=== PATIENT | female | born 1930 | race Caucasian/White ===

== ENCOUNTER 2016-04-07 04:07 | Inpatient (IN) | payer MEDICAID, OTHER ==
[2016-04-07] VITALS (8 sets, daily range): BP systolic 92–174; BP diastolic 53–75; PULSE 80–95; RESP 18–19; TEMP 98; Ht 149.9 cm; Wt 64.3 kg
[~2016-04-07] VITALS: Ht 149.9 cm; Wt 64.3 kg
[2016-04-07] MEDS ORDERED: DICLOFENAC SODIUM 37.5 MG/ML VIAL IV STA (06:08)
[2016-04-07] MEDS ORDERED: SOD CHLORIDE 0.9% 1,000 ML IV ONE (06:30)
--- NOTE | 2016-04-07 06:37 | RADRPT ---
PROCEDURE: CHEST - 1 VIEW CLINICAL INDICATION: 85-year-old female with chest/abdominal pain. TECHNIQUE: A single frontal AP view of the chest was performed portably. The images were reviewed on a PACS workstation. COMPARISON: None. FINDINGS: The cardiomediastinal silhouette is mildly enlarged. The thoracic aorta is calcified. There is mil d pulmonary vascular congestion. There is no evidence for an infiltrate. There is no evidence for pneumothorax. The osseous structures are intact. IMPRESSION: 1. Cardiomegaly. 2. Calcified thoracic aorta. 3. Mild pulmonary vascular congestion. .Ab Perez MD, Date Time Electronically viewed and signed by .Ab Perez MD, MD on 04/07/2016 06:36 .M/
[2016-04-07 06:39] LABS: ALBUMIN 4.2 g/dl (3.3-4.9)
[2016-04-07 06:40] LABS: POTASSIUM 4.6 mmol/L (3.5-5.1)
[2016-04-07 06:42] LABS: BILIRUBIN,INDIRECT 0.3 mg/dl (0-1.1); BILIRUBIN,TOTAL 0.3 mg/dl (0.2-1.3); CREATININE 0.69 mg/dl (0.44-1.00)
[2016-04-07 06:43] LABS: ALBUMIN/GLOBULIN RATIO 1.1; CALCIUM 9.7 mg/dl (8.4-10.2)
[2016-04-07 06:55] LABS: TROPONIN-I 0.114 ng/ml (0.00-0.12)
[2016-04-07] MEDS ORDERED: CEFTRIAXONE 1 GM/50 ML (PMX) 50 ML IVPB ONE (07:00)
[2016-04-07 07:04] LABS: HEMATOCRIT 39.2 % (37.0-47.0); HEMOGLOBIN 13.2 g/dl (12.0-16.0); MEAN CORPUSCULAR HGB CONC 33.8 g/dl (32.0-37.0); MEAN CORPUSCULAR VOLUME 82.9 fl (82.0-101.0); MEAN PLATELET VOLUME 11.3 fl (7.4-10.4); PLATELET COUNT 106 10^3/UL (140-440); RED BLOOD COUNT 4.73 10^6/ul (4.20-5.40); RED CELL DISTRIBUTION WIDTH 14.4 % (11.5-14.5)
[2016-04-07 07:06] LABS: CONDITION 1; LH ANALYZER COMMENTS 1; SUSPECT 1; UNCORRECTED WBC 12.6 10^3/ul (4.8-10.8)
[2016-04-07 07:13] LABS: ADD UMIC YES; URINE BILIRUBIN (Dip) NEGATIVE (NEGATIVE); URINE BLOOD (Dip) 1+ (NEGATIVE); URINE COLOR LT. YELLOW (YELLOW); URINE GLUCOSE (Dip) NEGATIVE (NEGATIVE); URINE KETONES (Dip) NEGATIVE (NEGATIVE); URINE LEUKOCYTE ESTERASE (Dip) TRACE (NEGATIVE); URINE NITRITE (Dip) POSITIVE (NEGATIVE); URINE TOTAL PROTEIN (Dip) 2+ (NEGATIVE); URINE UROBILINOGEN (Dip) 0.2 E.U./dL (0.1-1.0)
[2016-04-07 07:40] LABS: EOSINOPHILS # 0.2 10^3/ul (0.0-0.5); LYMPHOCYTES # 0.9 10^3/ul (0.8-2.9); MONOCYTE # 0.6 10^3/ul (0.3-0.9); NEUTROPHIL # 9.4 10^3/ul (1.6-7.5)
[2016-04-07 07:41] LABS: HYPOCHROMASIA 1+; PLATELETS CLUMPS RARE
[2016-04-07 07:46] LABS: BACTERIA,URINE MODERATE; URINE RBCS 0-2 /HPF (0)
[2016-04-07] MEDS ORDERED: ASPIRIN 325 MG TAB PO ONE (08:00)
[2016-04-07] MEDS ORDERED: FUROSEMIDE 40 MG INJ IV ONE (09:30)
[2016-04-07] MEDS ORDERED: ONDANSETRON 4 MG INJ IV PRN ×2 (10:30→11:30)
[2016-04-07] MEDS ORDERED: ACETAMINOPHEN 325 MG TAB PO PRN ×2 (10:30→11:30)
[2016-04-07] MEDS ORDERED: BISACODYL (EC) 5 MG TAB PO PRN (11:30)
[2016-04-07] MEDS ORDERED: NACL 0.9% 3 ML SYG IV SCH (11:30)
[2016-04-07] MEDS ORDERED: morphine 2 MG INJ IV PRN (11:30)
[2016-04-07] MEDS ORDERED: HYDROCODONE/APAP (5/325) TAB PO PRN (11:30)
[2016-04-07] MEDS ORDERED: hydrALAzine 20 MG INJ IV PRN ×2 (11:30→15:30)
[2016-04-07] MEDS ORDERED: NITROGLYCERIN (SL) 0.4 MG TAB SL PRN (11:30)
[2016-04-07] MEDS ORDERED: ZOLPIDEM 5 MG TAB PO PRN (11:30)
[2016-04-07] MEDS ORDERED: MAGNESIUM HYDROXIDE 30ML CUP PO PRN (11:30)
[2016-04-07] MEDS ORDERED: LORAZEPAM 2 MG INJ IV PRN (11:30)
[2016-04-07] MEDS ORDERED: METO25TA4 PO (11:56)
[2016-04-07] MEDS ORDERED: BENA5TAB2 PO (11:57)
[2016-04-07] MEDS ORDERED: ATOR80TA75 PO (11:58)
[2016-04-07] MEDS ORDERED: ASPI81TA3 PO (11:58)
[2016-04-07] MEDS ORDERED: ACET-141 PO (11:58)
--- NOTE | 2016-04-07 12:22 | ERA ---
ER Documentation Chief Complaint Date/Time DATE: 04/07/16 TIME: 12:04 Chief Complaint sob tonight HPI This 85-year-old female presents emergency room with shortness of breath is been going for the last few days the getting progressively worse. She also has chest pain that hurts when she pushes on her sternum. Medical history includes only hypertension high cholesterol. She's been otherwise healthy and lives with family but is partially independent. He's had chills but does not think she has had any fevers. She has been somewhat lightheaded. She is also had increased urinary frequency. ROS All systems reviewed and are negative except as per history of present illness. Medications Home Meds Reported Medications Acetaminophen* (Acetaminophen*) 500 MG Extra Strength Tablet, 500 MG PO Q6H Y for PAIN AND OR ELEVATED TEMP, TAB 04/07/16 Atorvastatin* (Atorvastatin*) 80 Mg Tablet, 80 MG PO QHS, #30 TAB 04/07/16 Aspirin* (Aspirin* Chew) 81 Mg Tab.chew, 81 MG PO DAILY, TAB.CHEW 04/07/16 Benazepril Hcl* (Benazepril Hcl*) 5 Mg Tablet, 5 MG PO BID, #60 TAB 04/07/16 Metoprolol Tartrate* (Lopressor*) 25 Mg Tablet, 25 MG PO DAILY, #60 TAB 04/07/16 Allergies Allergies: Coded Allergies: No Known Drug Allergies (Verified Allergy, Unknown, 04/07/16) PMhx/Soc History of Surgery: Yes (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) Anesthesia Reaction: No Hx Neurological Disorder: No Hx Respiratory Disorders: No Hx Cardiac Disorders: Yes (HTN, HIGH CHOLESTEROL) Hx Psychiatric Problems: No Hx Miscellaneous Medical Probl: No Hx Alcohol Use: No Hx Substance Use: No Hx Tobacco Use: No Smoking Status: Never smoker Physical Exam Vitals Vital Signs Date Time Temp Pulse Resp B/P Pulse Ox O2 Delivery O2 Flow Rate FiO2 04/07/16 10:30 98.0 105 28 171/74 97 04/07/16 08:30 98.0 104 28 174/70 97 04/07/16 06:30 98.0 105 28 171/67 97 04/07/16 05:05 98.0 109 28 179/64 97 04/07/16 04:10 98.0 115 28 194/91 96 Physical Exam Const: [] No acute distress Head: Atraumatic Eyes: Normal Conjunctiva and EOMI, TRAVIS ENT: Normal External Ears, Nose and Mouth. Neck: Full range of motion..~ No meningismus. Resp: Increased bibasilar breath sounds mild Rales in right base. Cardio: Regular tachycardia, no murmurs Abd: Soft, non tender, non distended. Normal bowel sounds Skin: No petechiae or rashes Back: No midline or flank tenderness Ext: No cyanosis, or edema Neur: Awake and alert and oriented 3., No focal deficits Result Diagram: 04/07/16 0600 04/07/16 0600 Results 24 hrs Laboratory Tests Test 04/07/16 06:00 04/07/16 06:58 04/07/16 07:10 04/07/16 10:25 Alanine Aminotransferase (ALT/SGPT) 38IU/L Albumin 4.2g/dl Albumin/Globulin Ratio 1.10 Alkaline Phosphatase 95IU/L Anion Gap 16 Aspartate Amino Transf (AST/SGOT) 36IU/L B-Type Natriuretic Peptide 2800PG/ML Basophils # 10^3/ul Basophils % % Blood Morphology Comment Blood Urea Nitrogen 17mg/dl Calcium Level 9.7mg/dl Carbon Dioxide Level 30mmol/L Chloride Level 101mmol/L Clumped Platelets RARE Creatinine 0.69mg/dl Differential Comment MANUAL DIFF Direct Bilirubin 0.00mg/dl Eosinophils # 0.210^3/ul Eosinophils % 2.0% Giant Platelets RARE Globulin 3.80g/dl Glucose Level 111mg/dl Hematocrit 39.2% Hemoglobin 13.2g/dl Hypochromasia 1+ Indirect Bilirubin 0.3mg/dl Large Platelets OCCASIONAL Lipase 190U/L Lymphocytes # 0.910^3/ul Lymphocytes % 8.0% Mean Corpuscular Hemoglobin 28.0pg Mean Corpuscular Hemoglobin Concent 33.8g/dl Mean Corpuscular Volume 82.9fl Mean Platelet Volume 11.3fl Monocytes # 0.610^3/ul Monocytes % 5.0% Neutrophils # 9.410^3/ul Neutrophils % 85.0% Nucleated Red Blood Cells # 10^3/ul Nucleated Red Blood Cells % /100WBC Platelet Count 95163^3/UL Potassium Level 4.6mmol/L Red Blood Count 4.7310^6/ul Red Cell Distribution Width 14.4% Sodium Level 142mmol/L Total Bilirubin 0.3mg/dl Total Protein 8.0g/dl Troponin I 0.114ng/ml White Blood Count 11.010^3/ul Urine Bacteria MODERATE Urine Bilirubin NEGATIVE Urine Clarity SLIGHTLY CLOUDY Urine Color LT. YELLOW Urine Epithelial Cells FEW Urine Glucose NEGATIVE% Urine Hemoglobin 1+ Urine Ketones NEGATIVE Urine Leukocyte Esterase TRACE Urine Microscopic RBC 0-2/HPF Urine Microscopic WBC 5-10/HPF Urine Nitrite POSITIVE Urine Specific [place] 1.015 Urine Total Protein 2+ Urine Urobilinogen 0.2 E.U./dL Urine pH 6.5 Lactic Acid Level 1.6mmol/L 1.8mmol/L Current Medications Medications (Trade) Dose Ordered Sig/Josh Route PRN Reason Start Time Stop Time Status Last Admin Dose Admin Sodium Chloride (NS) 1,000 ml @ 1,000 mls/hr Q1H ONCE IV 04/07/16 06:30 04/07/16 07:29 DC 04/07/16 06:40 Diclofenac Sodium 37.5 mg 37.5 mg ONCE STAT IV 04/07/16 06:08 04/07/16 06:10 DC Ceftriaxone Sodium (Rocephin) 50 ml @ 100 mls/hr ONCE ONCE IVPB 04/07/16 07:00 04/07/16 07:29 DC 04/07/16 07:15 Aspirin (Aspirin) 325 mg ONCE ONCE PO 04/07/16 08:00 04/07/16 08:01 DC 04/07/16 08:00 Furosemide (Lasix) 40 mg ONCE ONCE IV 04/07/16 09:30 04/07/16 09:31 DC 04/07/16 09:30 Ondansetron HCl (Zofran Inj) 4 mg ER BRIDGE PRN IV NAUSEA AND/OR VOMITING 04/07/16 10:30 04/08/16 10:29 Acetaminophen (Tylenol Tab) 650 mg ER BRIDGE PRN PO MILD PAIN/FEVER 04/07/16 10:30 04/08/16 10:29 IV Flush (NS 3 ml) 3 ml PER PROTOCOL IV 04/07/16 11:30 Lorazepam (Ativan) 0.5 mg Q6H PRN IV ANXIETY 04/07/16 11:30 Ondansetron HCl (Zofran Inj) 4 mg Q6H PRN IV NAUSEA AND/OR VOMITING 04/07/16 11:30 Aspirin (Aspirin) 81 mg DAILY PO 04/08/16 09:00 Nitroglycerin (Nitroglycerin (Sl Tab) 0.4 Mg) 1 tab Q5M PRN SL CHEST PAIN 04/07/16 11:30 Acetaminophen (Tylenol Tab) 650 mg Q6H PRN PO PAIN LEVEL 1-3 OR FEVER 04/07/16 11:30 Acetaminophen/ Hydrocodone Bitart ([place] (5/325)) 1 tab Q6H PRN PO PAIN LEVEL 4-6 04/07/16 11:30 Morphine Sulfate (morphine) 2 mg Q4H PRN IV PAIN LEVEL 7-10 04/07/16 11:30 Zolpidem Tartrate (Ambien) 5 mg QHS PRN PO INSOMNIA 04/07/16 11:30 Magnesium Hydroxide (Milk Of Mag) 30 ml DAILY PRN PO CONSTIPATION 04/07/16 11:30 Bisacodyl (Dulcolax) 5 mg DAILY PRN PO CONSTIPATION 04/07/16 11:30 Famotidine (Pepcid) 20 mg DAILY PO 04/07/16 12:00 Enoxaparin Sodium (Lovenox) 40 mg DAILY SC 04/08/16 09:00 04/08/16 09:00 DC Hydralazine HCl 10 mg 10 mg Q6H PRN IV SBP greater than 160 04/07/16 11:30 Ceftriaxone Sodium (Rocephin) 50 ml @ 100 mls/hr Q24H IVPB 04/08/16 06:00 Procedures/MDM Elderly female with new onset congestive heart failure likely causing her shortness of breath as well as concomitant UTI with sepsis. Is no history of congestive heart failure and has elevated BNP as well as evidence of probably vascular congestion with mild pulmonary edema on chest x-ray. Persistent tachycardia in emergency room after for administration of 30 mL/kg she is given Rocephin. Diagnosis sepsis was made approximately one hour after patient's arrival in white blood cell count came back mildly elevated. She has no signs of acute cardiac syndrome at this time. She was given aspirin for the chest pain as well as Lasix 40 mg IV. Stated that she was feeling better in the emergency room. She'll be admitted for further control of her fluid balance after receiving fluids for sepsis and adding new onset congestive heart failure. Spoke with Dr. Taylor omitting the patient to telemetry. EKG interpretation: Sinus tachycardia, normal axis, no ST-T wave changes concerning for acute ischemia. Normal EKG Chest x-ray interpretation: Pulmonary vascular congestion with mild pulmonary edema, I see no infiltrates no pneumothorax, no Fractures monitor and storage bin tender interpretation: Persistent sinus tachycardia with no other arrhythmias Critical care time 33 minutes: This includes management of UTI with sepsis, careful fluid administration with concomitant congestive heart failure, antibiotic selection, chart review, multiple visits the patient's bedside to reassess her fluid status, discussion with family, patient admitting doctor. Is not occluding billable procedures Departure Diagnosis: Primary Impression: Sepsis secondary to UTI Additional Impressions: Chest pain Thrombocytopenia Condition: Serious SHIN SR DO Apr 07, 2016 12:17
--- NOTE | 2016-04-07 13:02 | HP ---
Date/Time of Note Date/Time of Note DATE: 04/07/16 TIME: 12:57 Assessment/Plan VTE Prophylaxis VTE Prophylaxis Intervention: SCD's Assessment/Plan Assessment/Plan 1. Chest pain. To rule out acute coronary syndrome. Serial troponins will be ordered. A 2-D echocardiogram will be obtained. The patient will be maintained on aspirin. A cardiology consult will be obtained. 2. CHF exacerbation. Systolic versus diastolic dysfunction. The patient will be maintained on Lasix. A 2-D echocardiogram will be obtained to evaluate the left ventricular ejection fraction. 3. Acute respiratory distress without failure. Hypoxic. Most probably secondary to #2. The patient will be maintained on supplemental oxygen. The patient will be adequately diuresed. The patient will be started on PRN inhaled bronchodilators for any episodes of dyspnea. 4. Accelerated hypertension. The patient's home antihypertensives will be resumed. The patient will also be started on PRN antihypertensives for any systolic blood pressure readings greater than 160 mmHg. 5. Dyslipidemia. The patient statins will be resumed. A fasting lipid panel will be obtained. Plan: The patient will be admitted to inpatient telemetry floor. The patient will be started on a low-cholesterol diet. The patient will be started on DVT prophylaxis and gastrointestinal prophylaxis. The patient will remain a full code. Activities will be as tolerated. The rest of the patient's management will be based on the clinical course, inputs from consultants, and the results of diagnostic studies. Based on the patient's clinical presentation, he most probably requires at least 1 midnight's stay for further management and evaluation of his clinical presentation. The case and management of this patient was fully discussed with . Approximately 50 minutes was spent on the history and physical of this patient. HPI/ROS Admit Date/Time Admit Date/Time Apr 07, 2016 at 10:09 Hx of Present Illness Reason for admission: Dyspnea and chest pain. Consultants 1. Kevin Randle M.D., cardiology. This is a 85-year-old female with past medical history essential hypertension, CAD, and dyslipidemia who was brought to the emergency room because of complaints of dyspnea that has been progressively getting worse for the past few days along with reported chest pain. The patient verbalized that she has been having worsening shortness of breath. This was not associated with any cough. The patient denied any fevers, chills, nausea, diaphoresis, vomiting , diarrhea, dysuria, or hematuria. The patient described the chest pain as substernal with no associated radiation. As per the patient's daughter, the patient had a coronary angiogram done at [facility] in February 2015. However, the daughter was not sure whether she got any interventions done. As per the daughter, the patient had a "heart attack" at that time. In the emergency room, the patient's initial set of troponins were negative. The patient's 12-lead EKG showed sinus rhythm with premature ventricular complexes. The patient was also noticed to have elevated BNP [2800]. Her urinalysis showed positive nitrate and leukocyte esterase with urine microscopic WBC of 5-10. She was noticed to have a blood pressure of 194/91 mmHg. The patient also had underlying tachycardia. Chest x-ray showed cardiomegaly with mild pulmonary vascular congestion. The patient was given IV Lasix, oral aspirin, and IV ceftriaxone in the emergency room. 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 Alcohol Use: none Smoking Status: Never smoker Drug Use: none Exam/Review of Systems Vital Signs Vitals Vital Signs Date Time Temp Pulse Resp B/P Pulse Ox O2 Delivery O2 Flow Rate FiO2 04/07/16 10:30 98.0 105 28 171/74 97 Exam Exam General: Adequately build 85 year-old female lying in bed in no apparent distress. HEENT: Normocephalic, atraumatic. Eyes: Anicteric sclerae, conjunctivae clear. ENT: Nasal septum midline, oral mucosa moist. Neck supple, no JVD noticed. Respiratory: Bilaterally diminished breath sounds. No use of accessory muscles of respiration. Bibasilar fine rales. Kyphotic posture. Cardiovascular: S1, S2 heard. Regular rate and rhythm. Abdomen: Soft and nondistended. Bowel sounds positive in all 4 quadrants. Mild tenderness in the right upper quadrant and left lower quadrant. Genitourinary: Deferred. Extremities: No cyanosis, no clubbing, no edema. Peripheral pulses palpable. Neurologic: Cranial nerves II through XII grossly intact. The patient is awake, alert, and oriented. Skin: Normal skin turgor. No skin rashes. Labs Result Diagram: 04/07/16 0600 04/07/16 0600 Medications Medications Current Medications Lorazepam (Ativan) 0.5 mg Q6H PRN IV ANXIETY; Start 04/07/16 at 11:30 Ondansetron HCl (Zofran Inj) 4 mg Q6H PRN IV NAUSEA AND/OR VOMITING; Start at 11:30 Aspirin (Aspirin) 81 mg DAILY PO ; Start 04/08/16 at 09:00 Nitroglycerin (Nitroglycerin (Sl Tab) 0.4 Mg) 1 tab Q5M PRN SL CHEST PAIN; Start 04/07/16 at 11:30 Acetaminophen (Tylenol Tab) 650 mg Q6H PRN PO PAIN LEVEL 1-3 OR FEVER; Start at 11:30 Acetaminophen/ Hydrocodone Bitart ([place] (5/325)) 1 tab Q6H PRN PO PAIN LEVEL 4 -6; Start 04/07/16 at 11:30 Morphine Sulfate (morphine) 2 mg Q4H PRN IV PAIN LEVEL 7-10; Start 04/07/16 at 11:30 Zolpidem Tartrate (Ambien) 5 mg QHS PRN PO INSOMNIA; Start 04/07/16 at 11:30 Magnesium Hydroxide (Milk Of Mag) 30 ml DAILY PRN PO CONSTIPATION; Start at 11:30 Bisacodyl (Dulcolax) 5 mg DAILY PRN PO CONSTIPATION; Start 04/07/16 at 11:30 Famotidine (Pepcid) 20 mg DAILY PO ; Start 04/07/16 at 12:00 Hydralazine HCl 10 mg 10 mg Q6H PRN IV SBP greater than 160; Start 04/07/16 at 11:30 Ceftriaxone Sodium (Rocephin) 50 ml @ 100 mls/hr Q24H IVPB ; Start 04/08/16 at 06:00 Procedures Procedures CXR IMPRESSION: 1. Cardiomegaly. 2. Calcified thoracic aorta. 3. Mild pulmonary vascular congestion. 12-lead EKG Sinus rhythm with premature ventricular complexes. KUMAR RENO NP Apr 07, 2016 13:02
--- NOTE | 2016-04-07 15:30 | RADRPT ---
Echocardiogram Report ADDENDUM Patient Name: MARILYN ALMARAZ Gender: Female Date: 1930 Study Date: 07-Apr-2016 Genetic Scientist: [facility] Location: [id number] Ref. Physician: KUMAR RENO Quality: Technically Difficult Study Procedures: Transthoracic echocardiogram with complete 2D, M-Mode, and doppler examination. Indications: Chest Pain. 2D/M Mode Doppler Measurement Value Normal Ranges Measurement Value Normal Ranges LVIDd 2D 4.2 3.5 - 5.6 cm AV Peak Alex 2.2 m/sec LVIDs 2D 3.0 2.1 - 4.1 cm AV Peak PG 20.0 mmHg FS 2D 29.1 % AI Peak PG 65.0 mmHg LVPWd 2D 1.4 0.6 - 1.1 cm AI Peak Alex 4.0 m/sec IVSd 2D 1.6 0.6 - 1.1 cm AI PHT 340.0 msec IVS/LVPW 2D 1.1 LVOT Peak Alex 0.9 m/sec AoR Diam 2D 2.6 2.0 - 3.7 cm LVOT Peak PG 3.0 mmHg LA/Ao 2D 2 0 - 1 MV E Peak Alex 1.3 m/sec EDV 2D 72.0 cm3 MR Peak PG 130.0 mmHg ESV 2D 25.7 cm3 MR Peak Alex 5.7 m/sec LA Dimen 2D 4.5 2.3 - 4.0 cm TR Peak Alex 3.9 m/sec TR Peak PG 62.0 mmHg Findings Left Ventricle: Lower limits of normal systolic function. Normal left ventricular cavity size. Moderate concentric left ventricular hypertrophy. Moderate left ventricular systolic dysfunction. Ejection fraction is visually estimated at 35 %. Tissue Doppler/Mitral Doppler indices are consistent with restrictive physiology with markedly elevated left atrial pressure (Stage IIIIV diastolic dysfunction). These segments of the LV are hypokinetic apex, apical septum and Lateral apex. Right Ventricle: Not well visualized. Left Atrium: There is moderate enlargement of left atrium. Right Atrium: Right atrium at upper limits of normal. Mitral Valve: Mitral valve leaflets appear mildly thickened. Mild mitral annular calcification. Mild mitral valve regurgitation. Aortic Valve: Aortic sclerosis without stenosis. Trileaflet aortic valve. Mild to moderate aortic valve regurgitation. Tricuspid Valve: Tricuspid valve not well visualized. Estimated peak PA systolic pressure 65 mmHg. There is mild to moderate tricuspid regurgitation. Pulmonic Valve: There is trace pulmonic regurgitation. Pericardium: Normal pericardium with no significant pericardial effusion. Aorta: Normal aortic root. IVC: Normal size and normal respiratory collapse consistent with normal right atrial pressure. Pulmonary Artery: Not well visualized. Conclusions 1. Normal left ventricular cavity size. Moderate concentric left ventricular hypertrophy. Moderate left ventricular systolic dysfunction. Ejection fraction is visually estimated at 35 %. Tissue Doppler/Mitral Doppler indices are consistent with restrictive physiology with markedly elevated left atrial pressure (Stage III-IV diastolic dysfunction). These segments of the LV are hypokinetic apex. , apical septum. and Lateral apex. 2.There is moderate enlargement of left atrium. 3.Mitral valve leaflets appear mildly thickened. Mild mitral valve regurgitation. 4.Aortic sclerosis without stenosis. Trileaflet aortic valve. Mild to moderate aortic valve regurgitation. 5.Tricuspid valve not well visualized. Estimated peak PA systolic pressure 65 mmHg. There is mild to moderate tricuspid regurgitation. 6.There is trace pulmonic regurgitation. Electronically Signed By: Kevin Randle 07-Apr-2016 15:39:09 -0800 [ADDENDUM] Patient Name: MARILYN ALMARAZ Study Date: 07-Apr-2016 [id number]
[2016-04-07] MEDS: FAMOTIDINE 20 MG TAB PO SCH (15:32)
[2016-04-07 16:37] LABS: CK-MB 5.84 ng/ml (0.0-2.4)
[2016-04-07 16:58] LABS: THYROID STIMULATING HORMONE 0.564 MIU/L (0.465-4.680)
[2016-04-07 17:30] LABS: TROPONIN-I 0.379 ng/ml (0.00-0.12)
[2016-04-07] MEDS: FUROSEMIDE 20 MG INJ IV SCH (18:32)
[2016-04-07] MEDS ORDERED: ALBUTEROL 0.5% (NEB) 2.5 MG/0.5 ML AMP HHN PRN (19:00)
[2016-04-07] MEDS ORDERED: BENAZEPRIL 5 MG TAB PO SCH (21:00)
[2016-04-07] MEDS: METOPROLOL 25 MG TAB PO SCH (21:08)
[2016-04-07] MEDS: ATORVASTATIN 80 MG TAB PO SCH (21:08)
[2016-04-07] MEDS: BENAZEPRIL 20 MG TAB PO SCH (21:09)
[2016-04-07 22:29] LABS: CK-MB 5.86 ng/ml (0.0-2.4)
[2016-04-07 22:34] LABS: TROPONIN-I 0.481 ng/ml (0.00-0.12)
[2016-04-08] VITALS (12 sets, daily range): BP systolic 106–142; BP diastolic 53–65; PULSE 60–90; RESP 16–19
[2016-04-08] MEDS ORDERED: HEPARIN 1000 UNITS/ML 10 ML INJ IV PRN
[2016-04-08] MEDS ORDERED: HEPARIN 1000 UNITS/ML 10 ML INJ IV ONE
[2016-04-08] MEDS: HEPARIN 25000 UNITS/250 ML 250 ML IV SCH ×3 (00:45→11:19)
[2016-04-08] MEDS: FUROSEMIDE 20 MG INJ IV SCH ×2 (05:44→17:33)
[2016-04-08] MEDS ORDERED: CEFTRIAXONE 1 GM/50 ML (PMX) 50 ML IVPB SCH (06:00)
[2016-04-08 07:35] LABS: MAGNESIUM 1.5 mg/dl (1.7-2.5); PHOSPHORUS 5.2 mg/dl (2.5-4.9)
[2016-04-08 07:36] LABS: ALBUMIN 3.8 g/dl (3.3-4.9); CHOL/HDL RATIO 2.5 RATIO
[2016-04-08 07:37] LABS: POTASSIUM 4.3 mmol/L (3.5-5.1)
[2016-04-08 07:39] LABS: ALBUMIN/GLOBULIN RATIO 1.05; BILIRUBIN,INDIRECT 0.5 mg/dl (0-1.1); BILIRUBIN,TOTAL 0.5 mg/dl (0.2-1.3); CREATININE 0.98 mg/dl (0.44-1.00); TOTAL PROTEIN 7.4 g/dl (6.1-8.1)
[2016-04-08 07:40] LABS: CALCIUM 9.7 mg/dl (8.4-10.2)
[2016-04-08 07:44] LABS: TROPONIN-I 0.499 ng/ml (0.00-0.12)
[2016-04-08 07:58] LABS: BASOPHILS % 0.1 % (0.0-2.0); EOSINOPHILS # 0.1 10^3/ul (0.0-0.5); EOSINOPHILS % 1.9 % (0.0-7.0); HEMATOCRIT 37.3 % (37.0-47.0); HEMOGLOBIN 12.6 g/dl (12.0-16.0); LYMPHOCYTES # 2.2 10^3/ul (0.8-2.9); LYMPHOCYTES % 28.2 % (15.0-51.0); MEAN CORPUSCULAR HEMOGLOBIN 27.9 pg (29.0-33.0); MEAN CORPUSCULAR HGB CONC 33.9 g/dl (32.0-37.0); MEAN CORPUSCULAR VOLUME 82.2 fl (82.0-101.0); MEAN PLATELET VOLUME 11.2 fl (7.4-10.4); MONOCYTE # 0.9 10^3/ul (0.3-0.9); MONOCYTES % 11.1 % (0.0-11.0); NEUTROPHIL # 4.5 10^3/ul (1.6-7.5); NEUTROPHILS % 58.7 % (39.0-77.0); PLATELET COUNT 102 10^3/UL (140-440); RED BLOOD COUNT 4.53 10^6/ul (4.20-5.40); RED CELL DISTRIBUTION WIDTH 14.7 % (11.5-14.5); WHITE BLOOD COUNT 7.7 10^3/ul (4.8-10.8)
[2016-04-08 08:00] LABS: SUSPECT 1; UNCORRECTED WBC 9.3 10^3/ul (4.8-10.8)
[2016-04-08 08:01] LABS: CONDITION 1; LH ANALYZER COMMENTS 1
[2016-04-08] MEDS: METOPROLOL 25 MG TAB PO SCH ×2 (08:47→20:46)
[2016-04-08] MEDS: FAMOTIDINE 20 MG TAB PO SCH (08:47)
[2016-04-08] MEDS: ASPIRIN 81 MG TAB PO SCH (08:47)
[2016-04-08] MEDS: BENAZEPRIL 20 MG TAB PO SCH ×2 (08:48→20:46)
[2016-04-08] MEDS ORDERED: ENOXAPARIN 40 MG/0.4 ML SYG SC SCH (09:00)
[2016-04-08] MEDS ORDERED: FUROSEMIDE 20 MG INJ IV SCH (09:00)
[2016-04-08] MEDS ORDERED: METOPROLOL 25 MG TAB PO SCH (09:00)
--- NOTE | 2016-04-08 10:20 | PN ---
Date/Time of Note Date/Time of Note DATE: 04/08/16 TIME: 10:17 Assessment/Plan VTE Prophylaxis VTE Prophylaxis Intervention: heparin Lines/Catheters IV Catheter Type (from Nrs): Peripheral IV Assessment/Plan Chief Complaint/Hosp Course A/P 1. NSTEMI; stable, cont medical management. Consider cath. will keep her npo post midnight. 2. Acute on chr systolic CHF. Cont Acei/bb/diuretic. Nonsmoker. EF 25% 3. Chr hypertension 4. Prediabetes 5. Valvular heart disease: AR ++ 6. Secondary pulmonary hypertension Problems: Subjective 24 Hr Interval Summary Free Text/Dictation Hospitalist coverage: -Feels better. No active dyspnea or recent fever or edema or travel. Has bilateral sore legs. Some mild chest pain overnight. -PVCs otherwise sinus rhythm overnight Exam/Review of Systems Vital Signs Vitals Vital Signs Date Time Temp Pulse Resp B/P Pulse Ox O2 Delivery O2 Flow Rate FiO2 04/08/16 08:54 75 04/08/16 07:30 98.9 19 134/62 99 04/08/16 01:35 2.0 28 04/08/16 00:50 Nasal Cannula Intake and Output 04/07/16 04/07/16 04/08/16 15:00 23:00 07:00 Intake Total 360 ml 80 ml Output Total 1200 ml 400 ml Balance -840 ml -320 ml Exam Constitutional: alert Neck: jvd (+jvd?) Respiratory: clear to auscultation Cardiovascular: regular rate and rhythm Gastrointestinal: non-tender (nondistended, no R R G), soft Extremities: normal pulses (mild edema no Homans sign) Results Result Diagram: 04/08/16 0650 04/08/16 0650 Results 24 hrs Laboratory Tests Test 04/07/16 10:25 04/07/16 15:36 04/07/16 22:00 04/08/16 06:50 Lactic Acid Level 1.8 1.9 Creatine Kinase 146 154 Creatine Kinase Index 4.0 3.8 Creatinine Kinase MB (Mass) 5.84 H 5.86 H Free Thyroxine 1.27 Thyroid Stimulating Hormone (TSH) 0.564 Troponin I 0.379 *H 0.481 *H 0.499 *H Vitamin D 1,25-Dihydroxy 69.5 Activated Partial Thromboplast Time > 180.0 *H Alanine Aminotransferase (ALT/SGPT) 31 Albumin 3.8 Albumin/Globulin Ratio 1.05 Alkaline Phosphatase 69 Anion Gap 19 H Aspartate Amino Transf (AST/SGOT) 38 Basophils # Pending Basophils % Pending Blood Morphology Comment Blood Urea Nitrogen 23 H Calcium Level 9.7 Carbon Dioxide Level 30 Chloride Level 99 Cholesterol Level 119 Cholesterol/HDL Ratio 2.5 Creatinine 0.98 Direct Bilirubin 0.00 Eosinophils # Pending Eosinophils % Pending Globulin 3.60 H Glucose Level 121 HDL Cholesterol 47 Hematocrit 37.3 Hemoglobin 12.6 Indirect Bilirubin 0.5 LDL Cholesterol, Calculated 61 Lymphocytes # Pending Lymphocytes % Pending Magnesium Level 1.5 L Mean Corpuscular Hemoglobin 27.9 L Mean Corpuscular Hemoglobin Concent 33.9 Mean Corpuscular Volume 82.2 Mean Platelet Volume 11.2 H Monocytes # Pending Monocytes % Pending Neutrophils # Pending Neutrophils % Pending Nucleated Red Blood Cells # Pending Nucleated Red Blood Cells % Pending Phosphorus Level 5.2 H Platelet Count 102 L Potassium Level 4.3 Red Blood Count 4.53 Red Cell Distribution Width 14.7 H Sodium Level 144 Total Bilirubin 0.5 Total Protein 7.4 Triglycerides Level 53 White Blood Count 7.7 # Medications Medications Current Medications Lorazepam (Ativan) 0.5 mg Q6H PRN IV ANXIETY; Start 04/07/16 at 11:30 Ondansetron HCl (Zofran Inj) 4 mg Q6H PRN IV NAUSEA AND/OR VOMITING Last administered on 04/07/16 18:33; Admin Dose 4 MG; Start 04/07/16 at 11:30 Aspirin (Aspirin) 81 mg DAILY PO Last administered on 04/08/16 08:47; Admin Dose 81 MG; Start 04/08/16 at 09:00 Nitroglycerin (Nitroglycerin (Sl Tab) 0.4 Mg) 1 tab Q5M PRN SL CHEST PAIN; Start 04/07/16 at 11:30 Acetaminophen (Tylenol Tab) 650 mg Q6H PRN PO PAIN LEVEL 1-3 OR FEVER Last administered on 04/07/16 16:54; Admin Dose 650 MG; Start 04/07/16 at 11:30 Acetaminophen/ Hydrocodone Bitart ([place] (5/325)) 1 tab Q6H PRN PO PAIN LEVEL 4 -6; Start 04/07/16 at 11:30 Morphine Sulfate (morphine) 2 mg Q4H PRN IV PAIN LEVEL 7-10; Start 04/07/16 at 11:30 Zolpidem Tartrate (Ambien) 5 mg QHS PRN PO INSOMNIA; Start 04/07/16 at 11:30 Magnesium Hydroxide (Milk Of Mag) 30 ml DAILY PRN PO CONSTIPATION; Start at 11:30 Bisacodyl (Dulcolax) 5 mg DAILY PRN PO CONSTIPATION; Start 04/07/16 at 11:30 Famotidine 20 mg 20 mg DAILY PO Last administered on 04/08/16 08:47; Admin Dose 20 MG; Start 04/07/16 at 12:00 Ceftriaxone Sodium (Rocephin) 50 ml @ 100 mls/hr Q24H IVPB Last administered on 04/08/16 05:45; Admin Dose 100 MLS/HR; Start 04/08/16 at 06:00 Atorvastatin Calcium (Lipitor) 80 mg QHS PO Last administered on 04/07/16 21: 08; Admin Dose 80 MG; Start 04/07/16 at 21:00 Metoprolol Tartrate (Lopressor) 25 mg BID PO Last administered on 04/08/16 08: 47; Admin Dose 25 MG; Start 04/07/16 at 21:00 Benazepril HCl (Lotensin) 20 mg BID PO Last administered on 04/08/16 08:48; Admin Dose 20 MG; Start 04/07/16 at 21:00 Hydralazine HCl (Apresoline) 10 mg Q4H PRN IV SBP>170 Last administered on 04/07 15:37; Admin Dose 10 MG; Start 04/07/16 at 15:30 LIZET MAURO MD Apr 08, 2016 10:20
[2016-04-08] MEDS ORDERED: MAGNESIUM SULFATE 3 GM in SOD CHLORIDE 0.9% 100 ML IVPB ONE (11:00)
[2016-04-08 12:59] LABS: PLATELETS CLUMPS MODERATE
--- NOTE | 2016-04-08 14:12 | CONS ---
DATE OF ADMISSION: 04/07/2016 DATE OF CONSULTATION: 04/07/2016 REASON FOR CONSULTATION: Chest pain, assess for acute coronary syndrome. REQUESTING PHYSICIAN: ____ from the hospitalist service and Willy Urbina from the hospitalist service. HISTORY OF PRESENT ILLNESS: Ms. Darby is an 85-year-old female with a history of hypert ension, coronary artery disease, dyslipidemia, possible prior PTCA and stent placement, has had adam ogram at [facility] 02/2015 and prior [place], who initially presented with complaints of substernal ches t pain, poorly described, and associated shortness of breath. Upon arrival in the emergency departm ent, temperature of 98, blood pressure 194/91, pulse 115, respiratory rate 28, saturating 96%. The patient's labs revealed white count 11.0, hemoglobin 13.2, platelet count 106. Sodium 142, potassiu m 4.6, creatinine of 0.69, BUN 17, AST 36, ALT 30. Troponin negative. BNP of 2800. The patient un derwent a chest x-ray revealing mild pulmonary vascular congestion. The patient's electrocardiogram was sinus tachycardia rate of 112, normal axis, normal intervals, with borderline anterior progres ernie and nonspecific ST-T ____ single PVC. The patient subsequently has been admitted to the floor where she continued to have elevated systolic blood pressures in 170s. The patient denies ongoing c hest pain. PAST MEDICAL HISTORY: As above in HPI. MEDICATIONS CURRENTLY IN HOSPITAL: 1. Aspirin 81 mg daily. 2. Lasix 20 mg IV daily. 3. Ceftriaxone. 4. Lipitor 80 mg at bedtime. 5. ____ 5 mg p.o. b.i.d. 6. Lopressor 25 mg p.o. b.i.d. 7. Pepcid 20 mg daily. 8. Zofran p.r.n. 9. Tylenol p.r.n. 10. [place] p.r.n. 11. Morphine p.r.n. 12. Milk of magnesia. 13. Dulcolax. 14. Hydralazine p.r.n. ALLERGIES: NO KNOWN DRUG ALLERGIES. SOCIAL HISTORY: No tobacco, ETOH or illicit drug use. FAMILY HISTORY: No history of sudden cardiac or early CAD. REVIEW OF SYSTEMS: As above in HPI. CONSTITUTIONAL: No fevers, chills. PULMONARY: Positive shortness of breath. CARDIOVASCULAR: Congestive heart failure on chest x-ray. GASTROINTESTINAL: No vomiting. GENITOURINARY: No hematuria. MUSCULOSKELETAL: Degenerative joint disease. PSYCHIATRIC: No documented psychiatric history. NEUROLOGIC: No documented history of CVA. PHYSICAL EXAMINATION: VITAL SIGNS: Temperature 98.6, blood pressure 174/74, pulse 95, respirations 19, satting 96%. GENERAL: The patient is alert, awake, complaining of mild shortness of breath, intermittent chest p ain. NECK: JVP approximately 9 cm water. CHEST: Bibasilar crackles. HEART: Regular rate and rhythm. S1, S2, a I/ systolic murmur. ABDOMEN: Positive bowel sounds, soft. EXTREMITIES: No pitting edema, 1+ pulses bilaterally, posterior tibial. LABORATORIES: As above in HPI with most recently from today, hemoglobin A1c of 6.1. IMAGING STUDIES: As above in HPI. No further imaging studies for my review at this time. IMPRESSION: 1. Chest pain, assess for acute coronary syndrome. 2. Congestive heart failure by chest x-ray, question systolic versus diastolic, but acute given pre sentation. 3. Hypertension, uncontrolled. 4. Possible history of prior myocardial infarction. 5. Possible history of percutaneous transluminal coronary angioplasty and stent placement. 6. Dyslipidemia. 7. Leukocytosis. RECOMMENDATIONS: 1. At this time, would maintain the patient on telemetry monitoring to follow rhythm and rate contr ol closely. 2. Would check serial EKGs to assess for significant ongoing changes. EKG in the morning, EKG for any complaints of chest pain or change in rhythm. 3. Continue the patient's current beta brandi and increase MYRIAM inhibitor to improve afterload redu ction. 4. Check a 2D echocardiogram to further assess the patient's ejection fraction, wall motion, and ma meber valve abnormalities. 5. Continue the patient's current statin therapy and follow fasting lipid panel and adjust accordin gly. 6. Continue the patient's aspirin for prophylaxis against cardiovascular events. 7. Would put the patient on gentle Lasix diuresis, following strict I's and O's to grade diuresis c losely. 8. Would check a 2D echo to assess patient's ejection fraction, wall motion and any major abnormali ties and will complete the patient's rule out for myocardial infarction ____ the patient's chest neida n was not due to an acute coronary syndrome such as acute myocardial infarction and will give the pa tient sublingual nitroglycerin for recurrent episodes of chest pain. Thank you for allowing me to take part in the care of this patient. I will continue to follow her v marlene closely with you with further recommendations to be made as the patient progresses through her [facility] clinical course. Dictated By: DREW WATSON/CLIF Conf#: [id number] DID#: [id number] CC: KUMAR URBINA TOOL GRINDER OPERATOR;*EndCC*
[2016-04-08] MEDS: ATORVASTATIN 80 MG TAB PO SCH (20:46)
[2016-04-09] VITALS (13 sets, daily range): BP systolic 126–177; BP diastolic 58–74; PULSE 60–77; RESP 16–20
[2016-04-09] MEDS: FUROSEMIDE 20 MG INJ IV SCH (04:19)
[2016-04-09 07:27] LABS: ALBUMIN 4.3 g/dl (3.3-4.9)
[2016-04-09 07:30] LABS: ALBUMIN/GLOBULIN RATIO 1.13; BILIRUBIN,INDIRECT 0.5 mg/dl (0-1.1); BILIRUBIN,TOTAL 0.5 mg/dl (0.2-1.3); CREATININE 1.03 mg/dl (0.44-1.00); TOTAL PROTEIN 8.1 g/dl (6.1-8.1)
[2016-04-09 07:31] LABS: CALCIUM 9.6 mg/dl (8.4-10.2); PHOSPHORUS 6.1 mg/dl (2.5-4.9)
[2016-04-09 07:39] LABS: INR 1.01; PROTIME 13.3 Sec (12.2-14.2)
[2016-04-09] MEDS: BENAZEPRIL 20 MG TAB PO SCH ×2 (09:34→20:06)
[2016-04-09] MEDS: METOPROLOL 25 MG TAB PO SCH ×2 (09:35→20:06)
[2016-04-09] MEDS: FAMOTIDINE 20 MG TAB PO SCH (09:35)
[2016-04-09] MEDS: ASPIRIN 81 MG TAB PO SCH (09:35)
--- NOTE | 2016-04-09 12:02 | PN ---
Date/Time of Note Date/Time of Note DATE: 04/09/16 TIME: 12:01 Assessment/Plan VTE Prophylaxis VTE Prophylaxis Intervention: LMWH Lines/Catheters IV [facility]from [facility] [place] Urinary Cath still in place: No Assessment/Plan Chief Complaint/Hosp Course A/P 1. NSTEMI? stable, cont medical mngmnt. Consider cath. will keep her npo. 2. Ac/ chr systolic CHF. Cont Acei/bb/diuretic. Nonsmoker. EF 25% 3. Chr hypertension 4. Prediabetes 5. Valvular heart disease: AR ++ 6. Secondary pulmonary hypertension Problems: Subjective 24 Hr Interval Summary Free Text/Dictation Hospitalist coverage: No acute distress. Left thigh is painful. Exam/Review of Systems Vital Signs Vitals Vital Signs Date Time Temp Pulse Resp B/P Pulse Ox O2 Delivery O2 Flow Rate FiO2 04/09/16 11:55 98.1 63 20 127/60 100 04/09/16 06:17 2.0 04/08/16 20:10 Nasal Cannula 04/08/16 01:35 28 Intake and Output 04/08/16 04/08/16 04/09/16 15:00 23:00 07:00 Intake Total 984 ml 240 ml Output Total 1600 ml Balance 984 ml -1360 ml Exam Constitutional: alert ENMT: other (no appreciated JVD) Respiratory: clear to auscultation Cardiovascular: regular rate and rhythm Gastrointestinal: non-tender (nondistended, no hard G.), soft Extremities: other (no edema Homans sign.) Results Result Diagram: 04/08/16 0650 04/09/16 0625 Results 24 hrs Laboratory Tests Test 04/08/16 18:00 04/08/16 23:40 04/09/16 06:25 Activated Partial Thromboplast Time 61.4 H 65.8 H 73.3 *H Alanine Aminotransferase (ALT/SGPT) 36 Albumin 4.3 Albumin/Globulin Ratio 1.13 Alkaline Phosphatase 87 Anion Gap 19 H Aspartate Amino Transf (AST/SGOT) 45 Blood Urea Nitrogen 35 #H Calcium Level 9.6 Carbon Dioxide Level 29 Chloride Level 97 Creatinine 1.03 H Direct Bilirubin 0.00 Globulin 3.80 H Glucose Level 120 INR International Normalized Ratio 1.01 Indirect Bilirubin 0.5 Phosphorus Level 6.1 H Potassium Level 4.0 Prothrombin Time 13.3 Prothrombin Time Ratio 1.0 Sodium Level 141 Total Bilirubin 0.5 Total Protein 8.1 Medications Medications Current Medications Ondansetron HCl (Zofran Inj) 4 mg Q6H PRN IV NAUSEA AND/OR VOMITING Last administered on 04/07/16 18:33; Admin Dose 4 MG; Start 04/07/16 at 11:30 Aspirin (Aspirin) 81 mg DAILY PO Last administered on 04/09/16 09:35; Admin Dose 81 MG; Start 04/08/16 at 09:00 Nitroglycerin (Nitroglycerin (Sl Tab) 0.4 Mg) 1 tab Q5M PRN SL CHEST PAIN; Start 04/07/16 at 11:30 Acetaminophen (Tylenol Tab) 650 mg Q6H PRN PO PAIN LEVEL 1-3 OR FEVER Last administered on 04/07/16 16:54; Admin Dose 650 MG; Start 04/07/16 at 11:30 Acetaminophen/ Hydrocodone Bitart ([place] (5/325)) 1 tab Q6H PRN PO PAIN LEVEL 4 -6; Start 04/07/16 at 11:30 Morphine Sulfate (morphine) 2 mg Q4H PRN IV PAIN LEVEL 7-10; Start 04/07/16 at 11:30 Zolpidem Tartrate (Ambien) 5 mg QHS PRN PO INSOMNIA; Start 04/07/16 at 11:30 Magnesium Hydroxide (Milk Of Mag) 30 ml DAILY PRN PO CONSTIPATION; Start at 11:30 Bisacodyl (Dulcolax) 5 mg DAILY PRN PO CONSTIPATION; Start 04/07/16 at 11:30 Famotidine (Pepcid) 20 mg DAILY PO Last administered on 04/09/16 09:35; Admin Dose 20 MG; Start 04/07/16 at 12:00 Atorvastatin Calcium (Lipitor) 80 mg QHS PO Last administered on 04/08/16 20: 46; Admin Dose 80 MG; Start 04/07/16 at 21:00 Metoprolol Tartrate (Lopressor) 25 mg BID PO Last administered on 04/09/16 09: 35; Admin Dose 25 MG; Start 04/07/16 at 21:00 Benazepril HCl (Lotensin) 20 mg BID PO Last administered on 04/09/16 09:34; Admin Dose 20 MG; Start 04/07/16 at 21:00 Hydralazine HCl (Apresoline) 10 mg Q4H PRN IV SBP>170 Last administered on 04/07t 15:37; Admin Dose 10 MG; Start 04/07/16 at 15:30 LIZET MAURO MD Apr 09, 2016 12:02
--- NOTE | 2016-04-09 12:14 | CONS ---
Date/Time of Note Date/Time of Note DATE: 04/09/16 TIME: 12:11 Assessment/Plan Assessment/Plan Additional Assessment/Plan 1. Chest pain, assess for acute coronary syndrome- no Cp noted, doubt ischemia. 2. Congestive heart failure by chest x-ray, question systolic versus diastolic , but acute given presentation- better fluid status now. 3. Hypertension - wel lRx, con't medr Rx. 4. Possible history of prior myocardial infarction - no CP now, on Rx. 5. Possible history of percutaneous transluminal coronary angioplasty and stent placement - no intervention planned now. 6. Dyslipidemia. 7. Leukocytosis. Consultation Date/Type/Reason Admit Date/Time Apr 07, 2016 at 10:09 Initial Consult Date 24 HR Interval Summary Free Text/Dictation NO acute change. BP stable - doubt ischemia. ROS: No fever, no chills, no nausea, no vomiting, no diarrhea/constipation No recent weight changes No chest pain, no PND, no orthopnea No dizziness, blurred vision No thirst, no heat or cold intolerance Exam/Review of Systems Vital Signs Vitals Vital Signs Date Time Temp Pulse Resp B/P Pulse Ox O2 Delivery O2 Flow Rate FiO2 04/09/16 11:55 98.1 63 20 127/60 100 04/09/16 06:17 2.0 04/08/16 20:10 Nasal Cannula 04/08/16 01:35 28 Intake and Output 04/08/16 04/08/16 04/09/16 15:00 23:00 07:00 Intake Total 984 ml 240 ml Output Total 1600 ml Balance 984 ml -1360 ml Exam General: WN/WD/NAD, AOx 1-2 HEENT: Unicetric/atraumatic/EOMI (follow commands) NECK: JVD elevated, no thyromegaly Lymph: no lymphadenopathy HEART: regular with no S3, II/ systolic murmur at apex LUNGS: Coarse sounds ABD: soft, NT, ND, +BS : Intact Neuro: non focal SKIN: chronic changes EXT: trace edema Results Result Diagram: 04/08/16 0650 04/09/16 0625 Results 24 hrs Laboratory Tests Test 04/08/16 18:00 04/08/16 23:40 04/09/16 06:25 Activated Partial Thromboplast Time 61.4 H 65.8 H 73.3 *H Alanine Aminotransferase (ALT/SGPT) 36 Albumin 4.3 Albumin/Globulin Ratio 1.13 Alkaline Phosphatase 87 Anion Gap 19 H Aspartate Amino Transf (AST/SGOT) 45 Blood Urea Nitrogen 35 #H Calcium Level 9.6 Carbon Dioxide Level 29 Chloride Level 97 Creatinine 1.03 H Direct Bilirubin 0.00 Globulin 3.80 H Glucose Level 120 INR International Normalized Ratio 1.01 Indirect Bilirubin 0.5 Phosphorus Level 6.1 H Potassium Level 4.0 Prothrombin Time 13.3 Prothrombin Time Ratio 1.0 Sodium Level 141 Total Bilirubin 0.5 Total Protein 8.1 Medications Medications Current Medications Ondansetron HCl (Zofran Inj) 4 mg Q6H PRN IV NAUSEA AND/OR VOMITING Last administered on 04/07/16 18:33; Admin Dose 4 MG; Start 04/07/16 at 11:30 Aspirin (Aspirin) 81 mg DAILY PO Last administered on 04/09/16 09:35; Admin Dose 81 MG; Start 04/08/16 at 09:00 Nitroglycerin (Nitroglycerin (Sl Tab) 0.4 Mg) 1 tab Q5M PRN SL CHEST PAIN; Start 04/07/16 at 11:30 Acetaminophen (Tylenol Tab) 650 mg Q6H PRN PO PAIN LEVEL 1-3 OR FEVER Last administered on 04/07/16 16:54; Admin Dose 650 MG; Start 04/07/16 at 11:30 Acetaminophen/ Hydrocodone Bitart ([place] (5/325)) 1 tab Q6H PRN PO PAIN LEVEL 4 -6; Start 04/07/16 at 11:30 Morphine Sulfate (morphine) 2 mg Q4H PRN IV PAIN LEVEL 7-10; Start 04/07/16 at 11:30 Zolpidem Tartrate (Ambien) 5 mg QHS PRN PO INSOMNIA; Start 04/07/16 at 11:30 Magnesium Hydroxide (Milk Of Mag) 30 ml DAILY PRN PO CONSTIPATION; Start at 11:30 Bisacodyl (Dulcolax) 5 mg DAILY PRN PO CONSTIPATION; Start 04/07/16 at 11:30 Famotidine (Pepcid) 20 mg DAILY PO Last administered on 04/09/16 09:35; Admin Dose 20 MG; Start 04/07/16 at 12:00 Atorvastatin Calcium (Lipitor) 80 mg QHS PO Last administered on 04/08/16 20: 46; Admin Dose 80 MG; Start 04/07/16 at 21:00 Metoprolol Tartrate (Lopressor) 25 mg BID PO Last administered on 04/09/16 09: 35; Admin Dose 25 MG; Start 04/07/16 at 21:00 Benazepril HCl (Lotensin) 20 mg BID PO Last administered on 04/09/16 09:34; Admin Dose 20 MG; Start 04/07/16 at 21:00 Hydralazine HCl (Apresoline) 10 mg Q4H PRN IV SBP>170 Last administered on 04/07 15:37; Admin Dose 10 MG; Start 04/07/16 at 15:30 BO VILLALTA MD Apr 09, 2016 12:14
[2016-04-09] MEDS: ATORVASTATIN 80 MG TAB PO SCH (20:06)
[2016-04-10] VITALS (10 sets, daily range): BP systolic 123–146; BP diastolic 60–76; PULSE 65–85; RESP 16
[2016-04-10 07:50] LABS: POTASSIUM 5.5 mmol/L (3.5-5.1)
[2016-04-10 07:52] LABS: HEMATOCRIT 39.1 % (37.0-47.0); HEMOGLOBIN 12.9 g/dl (12.0-16.0); MEAN CORPUSCULAR HEMOGLOBIN 27.6 pg (29.0-33.0); MEAN CORPUSCULAR VOLUME 83.7 fl (82.0-101.0); RED BLOOD COUNT 4.67 10^6/ul (4.20-5.40); RED CELL DISTRIBUTION WIDTH 14.7 % (11.5-14.5); WHITE BLOOD COUNT 7.2 10^3/ul (4.8-10.8)
[2016-04-10 07:53] LABS: CREATININE 0.85 mg/dl (0.44-1.00)
[2016-04-10 07:54] LABS: CALCIUM 9.6 mg/dl (8.4-10.2); MAGNESIUM 1.9 mg/dl (1.7-2.5)
[2016-04-10 07:56] LABS: CONDITION 1; LH ANALYZER COMMENTS 1; SUSPECT 1; UNCORRECTED WBC 9.9 10^3/ul (4.8-10.8)
[2016-04-10] MEDS: FAMOTIDINE 20 MG TAB PO SCH (08:41)
[2016-04-10] MEDS: ASPIRIN 81 MG TAB PO SCH (08:42)
[2016-04-10] MEDS: BENAZEPRIL 20 MG TAB PO SCH (08:42)
[2016-04-10] MEDS: METOPROLOL 25 MG TAB PO SCH (08:42)
[2016-04-10] MEDS ORDERED: SPIRONOLACTONE 25 MG TAB PO SCH (09:00)
[2016-04-10] MEDS ORDERED: ASP81 PO (09:32)
[2016-04-10] MEDS ORDERED: METO-448 PO (09:32)
[2016-04-10] MEDS ORDERED: ALDS PO (09:32)
[2016-04-10] MEDS ORDERED: BENA20TA48 PO (09:32)
[2016-04-10] MEDS ORDERED: ATOR80TA75 PO (09:32)
--- NOTE | 2016-04-10 09:35 | PDOCDIS ---
Discharge Instructions DIAGNOSIS Discharge Diagnosis: 1. chest pain suspect secondary to NSTEMI 2. acute on chronich CHF 3. htn CONDITION Patient Condition: Stable HOME CARE INSTRUCTIONS: Diet Instructions: Low Fat /CholesterolSpecial Diet: Cardiac FOLLOW UP/APPOINTMENTS Appointments 1. Follow up with Dr. Kevin Randle in one week 2. Follow up with your primary care provider in 1-2 weeks OTHER ORDERS: Other Orders: 1. Call 911 if you have worsening chest pain/shortness of breath ANN-MARIE INIGUEZ Apr 10, 2016 09:35
[2016-04-10 09:38] LABS: EOSINOPHILS # 0.1 10^3/ul (0.0-0.5); MONOCYTE # 0.6 10^3/ul (0.3-0.9); NEUTROPHIL # 4.5 10^3/ul (1.6-7.5)
[2016-04-10 09:39] LABS: ANISOCYTOSIS 1+; HYPOCHROMASIA 1+; PLATELET ESTIMATE PLT APPEAR DECREASED; PLATELETS CLUMPS 3+
[2016-04-10 11:54] LABS: PLATELET COUNT 175 10^3/UL (140-440)
--- NOTE | 2016-04-10 13:29 | CONS ---
Date/Time of Note Date/Time of Note DATE: 04/10/16 TIME: 13:23 Assessment/Plan Assessment/Plan Chief Complaint/Hosp Course IMPRESSION: 1. Chest pain, assess for acute coronary syndrome.-no sig uptrend on serial examination 2. Congestive heart failure by chest x-ray, question systolic versus diastolic , but acute given presentation. 3. Hypertension, uncontrolled. 4. Possible history of prior myocardial infarction. 5. Possible history of percutaneous transluminal coronary angioplasty and stent placement. 6. Dyslipidemia. 7. Leukocytosis. 8.Cardiomyopathy-EF 30-35% by echo this admit REcc: -Tele -serial ecg's -Continue current BB/ACEI -Continue aldactone -Continue asa and will add plavix to maximize medical therapy -Continue statin -REsume PO lasix at D/C Problems: Consultation Date/Type/Reason Admit Date/Time Apr 07, 2016 at 10:09 Initial Consult Date 04/08/2016 Type of Consultation: Cardiology Reason for Consultation positive troponin/CHF Referring Provider: ANN-MARIE INIGUEZ Exam/Review of Systems Vital Signs Vitals Vital Signs Date Time Temp Pulse Resp B/P Pulse Ox O2 Delivery O2 Flow Rate FiO2 04/10/16 12:20 65 04/10/16 11:49 98.0 16 130/61 97 04/10/16 04:14 Room Air 04/10/16 03:29 2.0 04/08/16 01:35 28 Intake and Output 04/09/16 04/09/16 04/10/16 15:00 23:00 07:00 Intake Total 550 ml Output Total 1250 ml Balance -700 ml Exam Review of Systems: CONSTITUTIONAL: No fevers, chills. PULMONARY: No sob CARDIOVASCULAR: No chest pain/palpitations GASTROINTESTINAL: No nausea/vomiting. GENITOURINARY: No hematuria/dysuria. MUSCULOSKELETAL: No myagias/arthalgias. PSYCHIATRIC: The patient denies depression. NEUROLOGIC: No weakness Constitutional: alert, oriented Head: normocephalic ENMT: mucosa pink and moist Neck: jvd (9 cm water), supple Respiratory: diminished breath sounds Cardiovascular: regular rate and rhythm Gastrointestinal: non-tender, soft Musculoskeletal: muscle tone Extremities: normal pulses (normal) Neurological: other (No focal deficits) Results Result Diagram: 04/10/16 0632 04/10/16 0632 Results 24 hrs Laboratory Tests Test 04/09/16 14:05 04/10/16 06:32 Activated Partial Thromboplast Time 68.7 H Anion Gap 16 Anisocytosis 1+ Basophils # Basophils % Blood Morphology Comment Blood Urea Nitrogen 33 H Calcium Level 9.6 Carbon Dioxide Level 31 Chloride Level 100 Clumped Platelets 3+ Creatinine 0.85 Eosinophils # 0.1 Eosinophils % 1.0 Glucose Level 85 Hematocrit 39.1 Hemoglobin 12.9 Hypochromasia 1+ Lymphocytes # 2.0 Lymphocytes % 28.0 Magnesium Level 1.9 Mean Corpuscular Hemoglobin 27.6 L Mean Corpuscular Hemoglobin Concent 33.0 Mean Corpuscular Volume 83.7 Mean Platelet Volume 12.0 H Monocytes # 0.6 Monocytes % 9.0 Neutrophils # 4.5 Neutrophils % 62.0 Nucleated Red Blood Cells # Nucleated Red Blood Cells % Platelet Count 175 # Platelet Estimate PLT APPEAR DECREASED Potassium Level 5.5 H Red Blood Count 4.67 Red Cell Distribution Width 14.7 H Sodium Level 141 Troponin I 0.271 *H White Blood Count 7.2 Medications Medications Current Medications Ondansetron HCl (Zofran Inj) 4 mg Q6H PRN IV NAUSEA AND/OR VOMITING Last administered on 04/07/16 18:33; Admin Dose 4 MG; Start 04/07/16 at 11:30 Aspirin (Aspirin) 81 mg DAILY PO Last administered on 04/10/16 08:42; Admin Dose 81 MG; Start 04/08/16 at 09:00 Nitroglycerin (Nitroglycerin (Sl Tab) 0.4 Mg) 1 tab Q5M PRN SL CHEST PAIN; Start 04/07/16 at 11:30 Acetaminophen (Tylenol Tab) 650 mg Q6H PRN PO PAIN LEVEL 1-3 OR FEVER Last administered on 04/07/16 16:54; Admin Dose 650 MG; Start 04/07/16 at 11:30 Acetaminophen/ Hydrocodone Bitart ([place] (5/325)) 1 tab Q6H PRN PO PAIN LEVEL 4 -6; Start 04/07/16 at 11:30 Morphine Sulfate (morphine) 2 mg Q4H PRN IV PAIN LEVEL 7-10; Start 04/07/16 at 11:30 Zolpidem Tartrate (Ambien) 5 mg QHS PRN PO INSOMNIA; Start 04/07/16 at 11:30 Magnesium Hydroxide (Milk Of Mag) 30 ml DAILY PRN PO CONSTIPATION; Start at 11:30 Bisacodyl (Dulcolax) 5 mg DAILY PRN PO CONSTIPATION; Start 04/07/16 at 11:30 Famotidine (Pepcid) 20 mg DAILY PO Last administered on 04/10/16 08:41; Admin Dose 20 MG; Start 04/07/16 at 12:00 Atorvastatin Calcium (Lipitor) 80 mg QHS PO Last administered on 04/09/16 20: 06; Admin Dose 80 MG; Start 04/07/16 at 21:00 Metoprolol Tartrate (Lopressor) 25 mg BID PO Last administered on 04/10/16 08: 42; Admin Dose 25 MG; Start 04/07/16 at 21:00 Benazepril HCl (Lotensin) 20 mg BID PO Last administered on 04/10/16 08:42; Admin Dose 20 MG; Start 04/07/16 at 21:00 Hydralazine HCl (Apresoline) 10 mg Q4H PRN IV SBP>170 Last administered on 04/07 15:37; Admin Dose 10 MG; Start 04/07/16 at 15:30 Spironolactone (Aldactone) 12.5 mg DAILY PO Last administered on 04/10/16 08: 42; Admin Dose 12.5 MG; Start 04/10/16 at 09:00 Enoxaparin Sodium (Lovenox) 40 mg DAILY@21 SC ; Start 04/10/16 at 21:00 DREW MULLEN Apr 10, 2016 13:28
[2016-04-10] MEDS ORDERED: LAS20 PO (15:47)
[2016-04-10] MEDS ORDERED: CLOP75TA28 PO (15:47)
[2016-04-10] MEDS ORDERED: ENOXAPARIN 40 MG/0.4 ML SYG SC SCH (21:00)
[2016-04-11] MEDS ORDERED: CLOPIDOGREL 75 MG TAB PO SCH (09:00)
[2016-04-11] MEDS ORDERED: FUROSEMIDE 20 MG TAB PO SCH (09:00)
== END 2016-04-10 20:00 | disposition home or self-care (01) | DRG 293 ==
LOC: E/R 04:07 → MS4 10:09
PROVIDERS: ADMIT Family Medicine; ATTEND Family Medicine
DX: I50.43 Acute on chronic combined systolic (congestive) and diastolic (congestive) heart failure (principal); R06.00 Dyspnea, unspecified; I10 Essential (primary) hypertension; E78.5 Hyperlipidemia, unspecified; R73.03 Prediabetes; D72.829 Elevated white blood cell count, unspecified; I25.10 Atherosclerotic heart disease of native coronary artery without angina pectoris; Z79.82 Long term (current) use of aspirin
CPT/HCPCS: 36415; 71010; 80048; 80053; 80061; 81001; 81003; 82550; 82553; 82652; 83036; 83605; 83690; 83735; 83880; 84100; 84132; 84439; 84443; 84484; 85025; 85610; 85730; 87040; 87086; 93005; 93306; 96374; 96375; 97162; J1940; J0360; J0696; J1644; J2405; J3475; J7030